=== PATIENT | male | born 1940 | race Caucasian/White ===

== ENCOUNTER → 2017-11-21 11:14 | Outpatient (CLI) | payer MEDICARE, BC, SELFPAY ==
[2017-11-21 12:32] LABS: AST(SGOT) 21 U/L (15-37); Alanine Aminotransfer ALT/SGPT 56 U/L (16-61); Albumin, Serum 3.4 g/dL (3.2-5.0); Alkaline Phosphatase 97 U/L (45-117); Anion Gap 8 (5-15); BUN 20 mg/dL (7-18); BUN/Creat Ratio 18.2 RATIO (10-20); Bilirubin, Direct 0.15 mg/dL (0.00-0.30); Calcium,Total 8.7 mg/dL (8.5-10.1); Chloride 108 mmol/L (98-107); Cholesterol 141 mg/dL (200); EST Glomerular Filtration Rate 69 mL/min (>60); Est Glom Filt Rate - Afr Amer 83 mL/min (>60); Globulin 3.6 g/dL (2.2-4.2); Glucose 103 mg/dL (74-106); High Density Lipoprotein 50 mg/dL; Potassium 4.3 mmol/L (3.5-5.1); Sodium Level 140 mmol/L (136-145); Triglycerides 156 mg/dL; Very Low Density Lipoprotein 31 mg/dL (5-40)
[2017-11-21 18:04] LABS: Microalbumin,Random Urine 13.6 mg/L (NO RANGE EST.); Microalbumin:Creatinine Ratio 8.9 mg/g CRE (<30 mg/g CRE)
== END ==
PROVIDERS: Internal Medicine Cardiovascular Disease; Family Provider Family Medicine; PCP Family Medicine; Visit Provider Family Medicine
DX: E11.9 Type 2 diabetes mellitus without complications (principal); E78.5 Hyperlipidemia, unspecified; I10 Essential (primary) hypertension; I25.118 Atherosclerotic heart disease of native coronary artery with other forms of angina pectoris; Z79.899 Other long term (current) drug therapy; Z98.61 Coronary angioplasty status
CPT/HCPCS: 36415; 80048; 80061; 80076; 82043; 82570

== ENCOUNTER 2018-01-18 15:00 | Outpatient (RCR) | payer MEDICARE, BC, SELFPAY ==
--- NOTE | 2017-11-16 12:34 | HP.PTEVAL_ITS ---
Patient's Visit Information BECKY CASTILLO is a 77 year old M referred to Physical Therapy by Tera GE with a diagnosis of B LE weakness. Date of Evaluation: 11/16/17 Physical Therapist: Chris Doyle PT, - Visit Plan Frequency: 2-3x /Week Duration: 4 Weeks Plan: B LE strengthening, balance and proprio, core stab ex's, nustep, and HEP - Subjective Subjective: Pt reports he has noticed a progressive weakening in his LE's for a chronic period of time. Pt reports he has had injections in his R knee and hip in the past. Pt reports he has a very low tolerance for prolonged standing and walking at this time. Pt reports always has a low grade LBP level, and notes he has to sit down sometimes secondary to LBP. Pt reports his R LE is weaker than his L LE. Pt reports No T or N at this time. Pt reports hyposensitivity in LE's secondary to his peripheral neuropathy that is present. No sleep diff secondary to pain. /10 LBP present this date. - Pain LBP Pain Intensity (Out of 10): 1 - Objective Neuro: B LE sensation is WNL to light touch. B pat tendon reflex= 2/3. MMT: B HS= 4/5 throughout, R knee ext= 4+/5. All others are WWNL. ROM: B LE's are WFL. Pt is moderately limited with L/S ext. Gait: Pt is able to ambulate 640' until needing tto take a rest break - Goals Goal 1:: Increase B LE strength x 1 grade to aid with stair negotiation Goal Time Frame: 4-6 Weeks Goal 2:: Pt will be able to ambulate greater than 1000' to aid with community ambulation Goal Time Frame: 4-6 Weeks Goal 3:: I with HEP Goal Time Frame: 4-6 Weeks - Rehabilitation Potential Physical Therapy Diagnosis: B LE weakness, intol for prolonged ambulation, and LBP secondary to debilitation and deg changes in the L/S Rehabilitation Potential: Good - Anticipated Interventions Patient/Client Instruction: Educate patient on: Condition, Plan of Care For the Purpose of:: To improve self management Therapeutic Exercise to Include: Strength training, Endurance training, Balance training, Gait and locomotor training, Dynamic Lumbar Stabilization For the Purpose of:: To decrease pain, To increase ROM, To improve muscle performance and motor function Thank you for the opportunity to evaluate your patient. For Medicare and Medicare HMO plans, please review the plan of care and approve it. It will need to be FAXED BACK to us at [phone] for Medicare purposes. Please let me know if there are questions or concerns regarding this plan of care. Physician Signature: Date:
--- NOTE | 2018-01-18 16:12 | HP.PTDCSUM ---
HP - PT D/C Summary It has been my pleasure to treat BECKY CASTILLO under orders from Tera Melgar, for the diagnosis of B LE weakness for a total of 19 visit(s). Discharge Date: Please see the following information for a summary of their discharge status. - Subjective Subjective: Minor pain this date - Pain LBP Pain Intensity (Out of 10): 1 R Le Pain Intensity (Out of 10): 1 - Objective Objective/Function: B LE's 5/5 throughout. Pt is able to ambulate greater than 1000 with no AD. Pt is I with HEP. Pt has achieved all Rx goals - Goals Goal 1:: Increase B LE strength x 1 grade to aid with stair negotiation Goal Progress: Goal Met Goal 2:: Pt will be able to ambulate greater than 1000' to aid with community ambulation Goal Progress: Goal Met Goal 3:: I with HEP Goal Progress: Goal Met - Plan Plan: B LE strengthening, balance and proprio, core stab ex's, nustep, and HEP - D/C Information If there are questions or concerns regarding this patient's physical therapy, please feel free to call me at [phone]. Thank you for the referral of this patient. Sincerely, Chris Doyle, PT,
== END 2018-01-18 19:00 | disposition home or self-care (01) ==
LOC: PT 15:00
PROVIDERS: Family Provider Family Medicine; PCP Family Medicine; Visit Provider Family Medicine
DX: R29.898 Other symptoms and signs involving the musculoskeletal system (principal)
CPT/HCPCS: 97110; 97162; 97530

== ENCOUNTER → 2018-06-14 12:18 | Outpatient (CLI) | payer MEDICARE, BC, SELFPAY ==
[2018-06-14 15:58] LABS: AST(SGOT) 22 U/L (15-37); Alanine Aminotransfer ALT/SGPT 40 U/L (16-61); Albumin, Serum 3.5 g/dL (3.2-5.0); Alkaline Phosphatase 108 U/L (45-117); Anion Gap 5 (5-15); BUN 20 mg/dL (7-18); BUN/Creat Ratio 16.4 RATIO (10-20); Bilirubin, Direct 0.19 mg/dL (0.00-0.30); Calcium,Total 8.9 mg/dL (8.5-10.1); Chloride 107 mmol/L (98-107); Cholesterol 133 mg/dL (200); Creatinine, Serum 1.22 mg/dL (0.70-1.30); EST Glomerular Filtration Rate 61 mL/min (>60); Est Glom Filt Rate - Afr Amer 74 mL/min (>60); Globulin 3.9 g/dL (2.2-4.2); Glucose 99 mg/dL (74-106); High Density Lipoprotein 46 mg/dL; Potassium 4.6 mmol/L (3.5-5.1); Protein, Total 7.4 g/dL (6.4-8.2); Sodium Level 139 mmol/L (136-145); Triglycerides 92 mg/dL; Very Low Density Lipoprotein 18 mg/dL (5-40)
== END ==
PROVIDERS: Family Provider Family Medicine; PCP Family Medicine; Visit Provider Family Medicine
DX: E11.9 Type 2 diabetes mellitus without complications (principal)
CPT/HCPCS: 36415; 80048; 80061; 80076

== ENCOUNTER → 2018-12-20 11:29 | Outpatient (CLI) | payer MEDICARE, BC, SELFPAY ==
[2017-12-25 11:44] VITALS: BMI 39.9
[2018-12-20 14:24] LABS: AST(SGOT) 20 U/L (15-37); Alanine Aminotransfer ALT/SGPT 43 U/L (16-61); Albumin, Serum 3.8 g/dL (3.2-5.0); Alkaline Phosphatase 105 U/L (45-117); Anion Gap 9 (5-15); BUN 24 mg/dL (7-18); BUN/Creat Ratio 20.2 RATIO (10-20); Bilirubin, Direct 0.18 mg/dL (0.00-0.30); Chloride 108 mmol/L (98-107); Cholesterol 151 mg/dL (200); Creatinine, Serum 1.19 mg/dL (0.70-1.30); EST Glomerular Filtration Rate 63 mL/min (>60); Est Glom Filt Rate - Afr Amer 76 mL/min (>60); Globulin 3.3 g/dL (2.2-4.2); Glucose 108 mg/dL (74-106); High Density Lipoprotein 46 mg/dL; Potassium 4.6 mmol/L (3.5-5.1); Protein, Total 7.1 g/dL (6.4-8.2); Sodium Level 141 mmol/L (136-145); Triglycerides 110 mg/dL; Very Low Density Lipoprotein 22 mg/dL (5-40)
[2018-12-20 14:37] LABS: Microalbumin,Random Urine 15.4 mg/L (NO RANGE EST.)
== END ==
PROVIDERS: Family Provider Family Medicine; PCP Family Medicine; Referring Provider Family Medicine; Visit Provider Family Medicine
DX: E11.9 Type 2 diabetes mellitus without complications (principal)
CPT/HCPCS: 36415; 80048; 80061; 80076; 82043; 82570

== ENCOUNTER → 2019-01-22 | Outpatient (CLI) | payer MEDICARE, BC, SELFPAY ==
[2019-01-03 10:32] VITALS: BMI 39.4
--- NOTE | 2019-01-22 14:56 | ECHOD_ITS ---
Reason For Study: MURMUR Procedure This was a 2D Doppler, Color Flow transthoracic echocardiogram. The study was technically difficult. Exam performed in department. Left Ventricle Normal LV size. Left ventricular systolic function is normal. The estimated ejection fraction is 60 %. Diastolic function is indeterminate. No regional wall motion abnormalities noted. Right Ventricle Normal RV size. Normal systolic function. Atria Normal left atrium. Normal right atrium. No doppler evidence for ASD. Mitral Valve There is mild to moderate mitral annular calcification. Extension of the mitral annular calcification onto the posterior mitral valve leaflet. Trivial mitral valve insufficiency. Tricuspid Valve Normal tricuspid valve. Trivial tricuspid valve insufficiency. Unable to estimate RV systolic pressure/pulmonary artery pressure due to technically difficult study. Aortic Valve The aortic valve is not well visualized. Mild focal aortic valve thickening. Mild focal aortic valve calcification. Aortic sclerosis, no stenosis. Pulmonic Valve The pulmonic valve is not well visualized. Great Vessels Normal sized aortic root. Pericardium/Pleural No pericardial effusion. MMode/2D Measurements & Calculations LVIDd: 4.0 cm IVSd: 1.4 cm LVOT diam: 2.0 cm LVIDs: 2.5 cm LVPWd: 1.2 cm LVOT area: 3.0 cm2 RVDd: 3.3 cm FS: 36.9 % Ao root diam: 3.4 cm LAV(MOD-sp4): 41.4 ml LA A4 area: 18.1 cm2 LA dimension(2D): 3.9 cm RA A4 area: 22.4 cm2 Time Measurements MV dec time: 0.30 sec Doppler Measurements & Calculations MV E max cedric: 85.1 cm/sec Lat Peak E' Cedric: 8.4 cm/sec Med Peak E' Cedric: 7.0 cm/sec MV A max cedric: 118.9 cm/sec E/E' lat: 10.1 E/E' med: 12.1 MV E/A: 0.72 Ao V2 max: 137.4 cm/sec LV V1 max: 112.4 cm/sec PA V2 max: 134.6 cm/sec Ao max P.6 mmHg LV V1 max P.1 mmHg KANDY(V,D): 2.5 cm2 Interpretation Summary The study was technically difficult. Left ventricular systolic function is normal. The estimated ejection fraction is 60 %. There is mild to moderate mitral annular calcification. Extension of the mitral annular calcification onto the posterior mitral valve leaflet. Trivial mitral valve insufficiency. Trivial tricuspid valve insufficiency. Aortic sclerosis, no stenosis. Unable to estimate RV systolic pressure/pulmonary artery pressure due to technically difficult study. Diastolic function is indeterminate. Ordering Physician: Tera Fitzpatrick Referring Physician: Tera Melgar Performed By: Page Srivastava, RDCS, RVT
== END | disposition home or self-care (01) ==
LOC: CVS 14:56
PROVIDERS: Family Provider Family Medicine; PCP Family Medicine; Referring Provider Internal Medicine Cardiovascular Disease; Visit Provider Internal Medicine Cardiovascular Disease
DX: I35.9 Nonrheumatic aortic valve disorder, unspecified (principal); Z79.899 Other long term (current) drug therapy
CPT/HCPCS: 93306

== ENCOUNTER → 2019-06-28 12:02 | Outpatient (CLI) | payer MEDICARE, BC, SELFPAY ==
[2019-06-27 10:27] VITALS: BMI 37.9
[2019-06-28 14:42] LABS: Anion Gap 7 (5-15); BUN 22 mg/dL (7-18); BUN/Creat Ratio 19.5 RATIO (10-20); Calcium,Total 9.1 mg/dL (8.5-10.1); Chloride 108 mmol/L (98-107); Creatinine, Serum 1.13 mg/dL (0.70-1.30); EST Glomerular Filtration Rate 67 mL/min (>60); Est Glom Filt Rate - Afr Amer 80 mL/min (>60); Glucose 103 mg/dL (74-106); Potassium 4.6 mmol/L (3.5-5.1); Sodium Level 140 mmol/L (136-145)
[2019-06-28 15:47] LABS: AST(SGOT) 22 U/L (15-37); Alanine Aminotransfer ALT/SGPT 50 U/L (16-61); Albumin, Serum 3.8 g/dL (3.2-5.0); Alkaline Phosphatase 122 U/L (45-117); Bilirubin, Direct 0.15 mg/dL (0.00-0.30); Cholesterol 144 mg/dL (200); Globulin 3.2 g/dL (2.2-4.2); High Density Lipoprotein 45 mg/dL; Triglycerides 114 mg/dL; Very Low Density Lipoprotein 23 mg/dL (5-40)
== END ==
PROVIDERS: Nurse Practitioner Family; Family Provider Family Medicine; PCP Family Medicine; Referring Provider Family Medicine; Visit Provider Family Medicine
DX: I25.118 Atherosclerotic heart disease of native coronary artery with other forms of angina pectoris (principal); E78.00 Pure hypercholesterolemia, unspecified; I10 Essential (primary) hypertension; Z95.5 Presence of coronary angioplasty implant and graft
CPT/HCPCS: 36415; 80048; 80061; 80076

== ENCOUNTER → 2020-02-14 10:57 | Outpatient (CLI) | payer MEDICARE, BC, SELFPAY ==
[2020-01-02 14:52] VITALS: BMI 37.9
[2020-02-14 11:44] LABS: Anion Gap 5 (5-15); BUN 17 mg/dL (7-18); BUN/Creat Ratio 15.9 RATIO (10-20); Calcium,Total 8.8 mg/dL (8.5-10.1); Chloride 111 mmol/L (98-107); Creatinine, Serum 1.07 mg/dL (0.70-1.30); EST Glomerular Filtration Rate 71 mL/min (>60); Est Glom Filt Rate - Afr Amer 86 mL/min (>60); Glucose 118 mg/dL (74-106); Potassium 4.5 mmol/L (3.5-5.1); Sodium Level 142 mmol/L (136-145)
[2020-02-14 12:06] LABS: AST(SGOT) 19 U/L (15-37); Alanine Aminotransfer ALT/SGPT 39 U/L (16-61); Albumin, Serum 3.5 g/dL (3.2-5.0); Alkaline Phosphatase 114 U/L (45-117); Bilirubin, Direct 0.18 mg/dL (0.00-0.30); Cholesterol 128 mg/dL (200); Globulin 3.7 g/dL (2.2-4.2); High Density Lipoprotein 44 mg/dL; Protein, Total 7.2 g/dL (6.4-8.2); Triglycerides 90 mg/dL; Very Low Density Lipoprotein 18 mg/dL (5-40)
[2020-02-14 12:10] LABS: Hemoglobin A1c 6.3 % (3.8-5.6)
== END ==
PROVIDERS: Nurse Practitioner Family; PCP Family Medicine; Visit Provider Internal Medicine Cardiovascular Disease
DX: E11.9 Type 2 diabetes mellitus without complications (principal); E78.00 Pure hypercholesterolemia, unspecified
CPT/HCPCS: 36415; 80048; 80061; 80076; 83036

== ENCOUNTER → 2020-07-29 11:27 | Outpatient (CLI) | payer MEDICARE, BC, SELFPAY ==
[2020-01-02 14:52] VITALS: BMI 37.9
[2020-07-29 14:01] LABS: Hemoglobin A1c 6.3 % (3.8-5.6)
[2020-07-29 14:12] LABS: AST(SGOT) 20 U/L (15-37); Alanine Aminotransfer ALT/SGPT 50 U/L (16-61); Albumin, Serum 3.7 g/dL (3.2-5.0); Alkaline Phosphatase 124 U/L (45-117); Anion Gap 5 (5-15); BUN 20 mg/dL (7-18); BUN/Creat Ratio 17.2 RATIO (10-20); Bilirubin, Direct 0.26 mg/dL (0.00-0.30); Calcium,Total 9.4 mg/dL (8.5-10.1); Chloride 107 mmol/L (98-107); Cholesterol 134 mg/dL (200); Creatinine, Serum 1.16 mg/dL (0.70-1.30); EST Glomerular Filtration Rate 64 mL/min (>60); Est Glom Filt Rate - Afr Amer 78 mL/min (>60); Globulin 3.7 g/dL (2.2-4.2); Glucose 105 mg/dL (74-106); High Density Lipoprotein 44 mg/dL; Potassium 4.5 mmol/L (3.5-5.1); Protein, Total 7.4 g/dL (6.4-8.2); Sodium Level 140 mmol/L (136-145); Triglycerides 132 mg/dL; Very Low Density Lipoprotein 26 mg/dL (5-40)
== END ==
PROVIDERS: Internal Medicine Cardiovascular Disease; PCP Family Medicine; Visit Provider Family Medicine
DX: E78.00 Pure hypercholesterolemia, unspecified (principal); E11.9 Type 2 diabetes mellitus without complications
CPT/HCPCS: 36415; 80048; 80061; 80076; 83036

== ENCOUNTER 2020-10-01 11:00 | Outpatient (RCR) | payer MEDICARE, BC, SELFPAY ==
[2020-07-31 13:05] VITALS: BMI 38.5
== END 2020-10-01 23:59 ==
LOC: IMMUN 11:00
PROVIDERS: PCP Family Medicine; Visit Provider Family Medicine
DX: Z23 Encounter for immunization (principal)
CPT/HCPCS: 0011A; 0012A; 91301

== ENCOUNTER → 2021-01-08 10:33 | Outpatient (CLI) | payer MEDICARE, BC, SELFPAY ==
[2020-07-31 13:05] VITALS: BMI 38.5
[2021-01-08 12:50] LABS: Hemoglobin A1c 6.5 % (3.8-5.6)
[2021-01-08 12:51] LABS: ALB/GLOB Ratio 0.9 RATIO (0.9-2.4); AST(SGOT) 18 U/L (15-37); Alanine Aminotransfer ALT/SGPT 39 U/L (16-61); Albumin, Serum 3.6 g/dL (3.2-5.0); Alkaline Phosphatase 120 U/L (45-117); Anion Gap 7 (5-15); BUN 26 mg/dL (7-18); BUN/Creat Ratio 20.6 RATIO (10-20); Chloride 107 mmol/L (98-107); Cholesterol 142 mg/dL (200); Creatinine, Serum 1.26 mg/dL (0.70-1.30); EST Glomerular Filtration Rate 58 mL/min (>60); Est Glom Filt Rate - Afr Amer 71 mL/min (>60); Globulin 3.9 g/dL (2.2-4.2); Glucose 119 mg/dL (74-106); High Density Lipoprotein 49 mg/dL; Potassium 4.6 mmol/L (3.5-5.1); Protein, Total 7.5 g/dL (6.4-8.2); Sodium Level 138 mmol/L (136-145); Triglycerides 122 mg/dL; Very Low Density Lipoprotein 24 mg/dL (5-40)
[2021-01-08 13:15] LABS: Microalbumin,Random Urine 19.1 mg/L (NO RANGE EST.); Microalbumin:Creatinine Ratio 18.4 mg/g CRE (<30 mg/g CRE)
== END ==
PROVIDERS: PCP Family Medicine; Referring Provider Family Medicine; Visit Provider Family Medicine
DX: E11.9 Type 2 diabetes mellitus without complications (principal); I10 Essential (primary) hypertension
CPT/HCPCS: 36415; 80053; 80061; 82043; 82570; 83036

== ENCOUNTER → 2021-01-11 15:53 | Outpatient (CLI) | payer MEDICARE, BC, SELFPAY ==
[2020-07-31 13:05] VITALS: BMI 38.5
--- NOTE | 2021-01-11 15:57 | RAD_ITS ---
STUDY: X-RAY - RIGHT KNEE REASON FOR EXAM: Male, 81 years old. PAIN TECHNIQUE: 3 view(s) of the knee. COMPARISON: 12/30/2015. FINDINGS: No acute fracture, dislocation or osseous destruction. Severe medial compartment osteoarthritis. Lateral compartment widening. Mild patellofemoral arthrosis. Mild anterior soft tissue swelling. Trace joint effusion. RAD/Knee 3 Views IMPRESSION: Right knee intact Severe medial compartment osteoarthritis Mild anterior swelling with trace joint effusion Electronically Signed: Nikolas Ochoa DO at 10:12 EDT Tel , Service support ,
--- NOTE | 2021-01-11 15:58 | RAD_ITS ---
STUDY: X-RAY - LUMBAR SPINE REASON FOR EXAM: Male, 81 years old. PAIN TECHNIQUE: 5 view(s) of the lumbar spine were obtained. COMPARISON: None FINDINGS: No acute fracture, dislocation or osseous destruction. Levoscoliosis. Lumbar straightening. Moderate/severe lower lumbar spine osteoarthritis with endplate spondylosis, disc height loss, osteophytes, neural foraminal narrowing and facet joint arthrosis. No spondylolisthesis. No significant soft tissue swelling. Vascular calcifications. RAD/L/S Spine Min 4 Views IMPRESSION: Lumbar spine intact with moderate/severe osteoarthritis Lumbar straightening with levoscoliosis Electronically Signed: Nikolas Ochoa DO at 10:25 EDT Tel , Service support ,
== END ==
PROVIDERS: PCP Family Medicine; Referring Provider Family Medicine; Visit Provider Family Medicine
DX: M54.9 Dorsalgia, unspecified (principal); M25.561 Pain in right knee
CPT/HCPCS: 72110; 73562

== ENCOUNTER → 2021-01-25 12:54 | Outpatient (CLI) | payer MEDICARE, BC, SELFPAY ==
[2021-01-13 13:05] VITALS: BMI 38.5
--- NOTE | 2021-01-25 12:55 | ECHOCS_ITS ---
Reason For Study: Dyspnea/SOB, Aortic Murmur Procedure This was a 2D Doppler, Color Flow transthoracic echocardiogram. The study was technically difficult. Contrast injection was performed. Exam performed in department. Left Ventricle Based upon the 2D echocardiographic and contrast enhanced images obtained there appears to be grossly normal left ventricular size, wall motion, and systolic function. The estimated ejection fraction is 65 %. Diastolic function is indeterminate. Right Ventricle Normal RV size. Normal systolic function. Atria Normal left atrium. Normal right atrium. No doppler evidence for ASD. Mitral Valve There is mild to moderate mitral annular calcification. Extension of the mitral annular calcification on the base of the posterior mitral valve leaflet. Trivial mitral valve insufficiency. Tricuspid Valve Normal tricuspid valve. Trivial tricuspid valve insufficiency. Unable to estimate RV systolic pressure/pulmonary artery pressure due to technically difficult study. Aortic Valve Trisinus/trileaflet aortic valve. Mild focal aortic valve thickening. Mild focal aortic valve calcification. Aortic sclerosis, no stenosis. Pulmonic Valve The pulmonic valve is not well visualized. Great Vessels The aortic root is not well visualized. Pericardium/Pleural No pericardial effusion. Medication 22 gauge I.V. with prn adaptor inserted into right arm. Diluted definity 4ml given slow IV push to enhance endocardial definition. MMode/2D Measurements & Calculations LVIDd: 3.8 cm IVSd: 1.2 cm LVOT diam: 2.0 cm LVIDs: 2.2 cm LVPWd: 0.76 cm FS: 42.2 % LVOT area: 3.2 cm2 LA dimension: 3.6 cm LAV(MOD-sp4): 32.4 ml LA A4 area: 15.3 cm2 RA A4 area: 14.5 cm2 Time Measurements MV dec time: 0.43 sec Doppler Measurements & Calculations MV E max cedric: 66.5 cm/sec Lat Peak E' Cedric: 6.5 cm/sec Med Peak E' Cedric: 7.4 cm/sec MV A max cedric: 110.4 cm/sec E/E' lat: 10.2 E/E' med: 9.0 MV E/A: 0.60 MV V2 max: 118.5 cm/sec MV P1/2t max cedric: 76.1 cm/sec Ao V2 max: 152.7 cm/sec MV max P.6 mmHg MV P1/2t: 154.7 msec Ao max P.3 mmHg MV V2 mean: 60.7 cm/sec MV dec slope: 144.1 cm/sec2 Ao V2 mean: 103.7 cm/sec MV mean P.7 mmHg Ao mean P.9 mmHg MV V2 VTI: 42.4 cm MVA(P1/2t): 1.4 cm2 Ao V2 VTI: 32.0 cm MVA(VTI): 2.1 cm2 KANDY(I,D): 2.8 cm2 KANDY(V,D): 2.9 cm2 LV V1 max: 136.3 cm/sec SV(LVOT): 90.6 ml PA V2 max: 105.9 cm/sec LV V1 max P.4 mmHg LV V1 mean P.9 mmHg LV V1 mean: 91.6 cm/sec LV V1 VTI: 28.0 ECHO/Echo Complete W/ Contrast Interpretation Summary The study was technically difficult. Contrast injection was performed. Based upon the 2D echocardiographic and contrast enhanced images obtained there appears to be grossly normal left ventricular size, wall motion, and systolic function. The estimated ejection fraction is 65 %. There is mild to moderate mitral annular calcification. Extension of the mitral annular calcification on the base of the posterior mitr al valve leaflet. Trivial mitral valve insufficiency. Trivial tricuspid valve insufficiency. Aortic sclerosis, no stenosis. Unable to estimate RV systolic pressure/pulmonary artery pressure due to techni kelly difficult study. Diastolic function is indeterminate. Ordering Physician: Daryl Garcia Referring Physician: Tera Melgar Performed By: Yan Aguirre RCS
== END ==
PROVIDERS: PCP Family Medicine; Referring Provider Nurse Practitioner Family; Visit Provider Nurse Practitioner Family
DX: I25.118 Atherosclerotic heart disease of native coronary artery with other forms of angina pectoris (principal)
CPT/HCPCS: 93306; Q9957; A4216; C8929

== ENCOUNTER → 2021-02-02 06:38 | Outpatient (CLI) | payer MEDICARE, BC, SELFPAY ==
[2021-01-13 13:05] VITALS: BMI 38.5
--- NOTE | 2021-02-02 12:51 | STRESSREP ---
Stress Test Report Date: 02-02-2021 Procedure: Pharmacologic stress nuclear imaging study Indications: Shortness of breath/dyspnea on exertion; CAD; PCI; abnormal ECG/right bundle branch block Consent: Per the patient Procedure: The patient underwent pharmacologic (Regadenoson 0.4mg ) evaluation with a peak heart rate of 103 beats per minute (74%predicted maximal heart rate) and a peak blood pressure of 142/78 mmHg. The baseline ECG demonstrated normal sinus rhythm; right bundle branch block. The peak pharmacologic ECG demonstrated no obvious ECG changes. There were no cardiac dysrhythmias pretest, during pharmacologic infusion, or recovery. There was no complaint of chest discomfort during pharmacologic infusion or recovery. The examination was discontinued secondary to completion of protocol. Impression: 1. Pharmacologic (Regadenoson) evaluation 2. Peak pharmacologic ECG with continued right bundle branch block with no obvious ECG changes. 3. There were no cardiac dysrhythmias pretest, during pharmacologic infusion, or recovery. 4. Nuclear images pending Myocardial perfusion imaging study: Technique: The patient was injected with 14.9 millicuries of technetium 99m Cardiolite and subsequently rest SPECT Cardiolite nuclear imaging was obtained in the horizontal long, vertical long, and short axis views. The patient underwent pharmacologic (Regadenoson) evaluation with a peak heart rate of 103 beats per minute (74% percent predicted maximal heart rate) and a peak blood pressure of 142/78 mmHg. The patient was injected with 44.8 millicuries of technetium 99m Cardiolite and subsequently stress SPECT Cardiolite nuclear imaging was obtained in the horizontal long, vertical long, and short axis views. A gated Cardiolite study at peak stress was obtained. Interpretation: Rest and stress SPECT Cardiolite nuclear imaging status post realignment, normalization, and attenuation correction demonstrate the appearance of body motion during image acquisition and otherwise relative uniform tracer uptake and myocardial perfusion appearing within normal limits. There is end systolic thickening and brightening. The gated Cardiolite study demonstrates myocardial thickening and inward wall motion. The reported LVEF is 88%. Impression: 1. Rest and stress SPECT Cardiolite nuclear imaging demonstrate relative uniform tracer uptake and myocardial perfusion appearing within normal limits. 2. The gated Cardiolite study reports an LVEF of 88%. This note was generated with [employer] software. It may contain incorrect words, spelling, and punctuation that were not noted in checking the note before signing.
== END ==
PROVIDERS: PCP Family Medicine; Referring Provider Nurse Practitioner Family; Visit Provider Nurse Practitioner Family
DX: I25.118 Atherosclerotic heart disease of native coronary artery with other forms of angina pectoris (principal); Z95.5 Presence of coronary angioplasty implant and graft; R06.00 Dyspnea, unspecified; R06.02 Shortness of breath
CPT/HCPCS: 78452; 93017; A9500; A4216; J2785

== ENCOUNTER → 2021-07-02 11:11 | Outpatient (CLI) | payer MEDICARE, BC, SELFPAY ==
[2021-07-02 12:49] LABS: Hemoglobin A1c 6.1 % (3.8-5.6)
[2021-07-02 13:20] LABS: PSA,Total- Diagnostic 2.47 ng/mL (0.0-4.0)
== END ==
PROVIDERS: PCP Family Medicine; Referring Provider Family Medicine; Visit Provider Family Medicine
DX: E11.9 Type 2 diabetes mellitus without complications (principal); N40.0 Benign prostatic hyperplasia without lower urinary tract symptoms
CPT/HCPCS: 36415; 83036; 84153

== ENCOUNTER → 2021-07-07 10:38 | Outpatient (CLI) | payer MEDICARE, BC, SELFPAY ==
[2021-07-07 12:52] LABS: AST(SGOT) 21 U/L (15-37); Alanine Aminotransfer ALT/SGPT 46 U/L (16-61); Albumin, Serum 3.3 g/dL (3.2-5.0); Alkaline Phosphatase 126 U/L (45-117); Bilirubin, Direct 0.22 mg/dL (0.00-0.30); Cholesterol 135 mg/dL (200); Globulin 3.6 g/dL (2.2-4.2); High Density Lipoprotein 50 mg/dL; Protein, Total 6.9 g/dL (6.4-8.2); Triglycerides 106 mg/dL; Very Low Density Lipoprotein 21 mg/dL (5-40)
== END ==
PROVIDERS: PCP Family Medicine; Referring Provider Internal Medicine Cardiovascular Disease; Visit Provider Internal Medicine Cardiovascular Disease
DX: E78.00 Pure hypercholesterolemia, unspecified (principal)
CPT/HCPCS: 36415; 80061; 80076

== ENCOUNTER 2021-11-19 12:45 | Outpatient (CLI) | payer MEDICARE, BC, SELFPAY ==
[2021-11-19 14:00] LABS: Hemoglobin A1c 6.3 % (3.8-5.6)
[2021-11-19 14:19] LABS: AST(SGOT) 25 U/L (15-37); Alanine Aminotransfer ALT/SGPT 56 U/L (16-61); Albumin, Serum 3.6 g/dL (3.2-5.0); Alkaline Phosphatase 115 U/L (45-117); Bilirubin, Direct 0.17 mg/dL (0.00-0.30); Cholesterol 156 mg/dL (200); Globulin 3.8 g/dL (2.2-4.2); High Density Lipoprotein 53 mg/dL; Protein, Total 7.4 g/dL (6.4-8.2); Triglycerides 131 mg/dL; Very Low Density Lipoprotein 26 mg/dL (5-40)
[2021-11-19 14:25] LABS: Anion Gap 2 (5-15); BUN 20 mg/dL (7-18); BUN/Creat Ratio 14.8 RATIO (10-20); Calcium,Total 9.4 mg/dL (8.5-10.1); Chloride 110 mmol/L (98-107); Creatinine, Serum 1.35 mg/dL (0.70-1.30); EST Glomerular Filtration Rate 54 mL/min (>60); Est Glom Filt Rate - Afr Amer 65 mL/min (>60); Glucose 120 mg/dL (74-106); PSA,Total- Diagnostic 2.34 ng/mL (0.0-4.0); Potassium 4.8 mmol/L (3.5-5.1); Sodium Level 138 mmol/L (136-145); Thyroid Stim Hormone (TSH) 2.13 uIU/mL (0.358-3.74)
== END 2021-11-19 23:59 | disposition home or self-care (01) ==
LOC: LAB 12:47
PROVIDERS: Internal Medicine Cardiovascular Disease; PCP Family Medicine; Referring Provider Family Medicine; Visit Provider Family Medicine
DX: I10 Essential (primary) hypertension (principal); E11.9 Type 2 diabetes mellitus without complications; E78.00 Pure hypercholesterolemia, unspecified; N40.0 Benign prostatic hyperplasia without lower urinary tract symptoms
CPT/HCPCS: 36415; 80048; 80061; 80076; 83036; 84153; 84443

== ENCOUNTER 2021-12-09 11:59 | Outpatient (CLI) | payer MEDICARE, BC, SELFPAY ==
--- NOTE | 2021-12-09 12:09 | EKG12_ITS ---
Test Reason : PREOP Blood Pressure : / mmHG Vent. Rate : 051 BPM Atrial Rate : 051 BPM P-R Int : 252 ms QRS Dur : 154 ms QT Int : 428 ms P-R-T Axes : 061 088 052 degrees QTc Int : 394 ms Sinus bradycardia with 1st degree A-V block Right bundle branch block Abnormal ECG Confirmed by MAIDA BOONE, SADI ([id number]), technical editor ODALIS ZEE ([id number]) on 12/10/2021 1:19:20 PM Referred By: FARHEEN JENSEN Confirmed By:REBECCA BEY MD
--- NOTE | 2021-12-09 12:40 | RAD_ITS ---
STUDY: XR Chest 2 Views 12/09/2021 12:41 PM REASON FOR EXAM: Male, 81 years old. PREOP COMPARISON: None TECHNIQUE: XR Chest 2 Views FINDINGS: There is no demonstrated pleural abnormality. Normal heart size. Normal mediastinum. Normal kiara. Prominent appearing increased interstitial lung markings. Normal visualized pulmonary arteries. There is atherosclerotic calcification of the aortic arch with tortuosity. There are diffuse degenerative changes of the visualized thoracic spine. There is degenerative osteoarthritis of the bilateral shoulders. There is no demonstrated abnormality of the visualized soft tissue structures of the upper abdomen. RAD/Chest PA and Lateral IMPRESSION: There are no acute findings. Electronically Signed: Chris Abdullahi MD at 16:55 EDT ,
[2021-12-09 13:39] LABS: Hematocrit 46.5 % (40-54); Hemoglobin 15.3 g/dL (13.0-16.5); Mean Corp Hgb Conc 32.9 g/dL (32-36); Mean Corpuscular Hgb 31.4 pg (27.0-32.0); Mean Corpuscular Volume 95.3 fL (80-94); Mean Platelet Vol. 11.9 fl (6.2-12.0); Platelet Count 190 K/mm3 (150-450); RBC Distribution Width CV 13.6 % (11.6-14.6); Red Blood Count 4.88 M/mm3 (4.6-6.2); White Blood Count 8.5 K/mm3 (4.4-11.0)
[2021-12-09 13:49] LABS: Partial Thromboplast Time 30.9 Seconds (24.1-36.2)
[2021-12-09 14:10] LABS: Anion Gap 6 (5-15); BUN 25 mg/dL (7-18); BUN/Creat Ratio 18.7 RATIO (10-20); Calcium,Total 8.8 mg/dL (8.5-10.1); Chloride 106 mmol/L (98-107); Creatinine, Serum 1.34 mg/dL (0.70-1.30); EST Glomerular Filtration Rate 54 mL/min (>60); Est Glom Filt Rate - Afr Amer 66 mL/min (>60); Glucose 198 mg/dL (74-106); Potassium 4.6 mmol/L (3.5-5.1); Sodium Level 137 mmol/L (136-145)
== END 2021-12-09 23:59 | disposition home or self-care (01) ==
PROVIDERS: PCP Family Medicine; Visit Provider Orthopaedic Surgery
DX: Z01.818 Encounter for other preprocedural examination (principal); Z01.810 Encounter for preprocedural cardiovascular examination; I25.10 Atherosclerotic heart disease of native coronary artery without angina pectoris
CPT/HCPCS: 36415; 71046; 80048; 85027; 85610; 85730; 93005

== ENCOUNTER 2022-01-13 12:36 | Observation (INO) | payer MEDICARE, BC, SELFPAY ==
[2022-01-13] VITALS (12 sets, daily range): BP systolic 84–138; BP diastolic 46–93; PULSE 55–87; RESP 16–18; TEMP 36.1–36.9; O2SAT 90–96; BMI 40.1; BMI 41.9
[2022-01-13] MEDS: Lactated Ringers 1,000 ML 15 ML IV (11:54)
--- NOTE | 2022-01-13 12:30 | RAD_ITS ---
STUDY: INTRAOPERATIVE FLUOROSCOPY TECHNIQUE: The examination was performed with referring physician in attendance. Under fluoroscopic observation, fluoroscopic images were obtained. Radiologist was not present for the study. Radiologist did not perform the procedure. This dictation is for documentation of the radiation dosage only. There is no interpretation of the images. TOTAL NUMBER OF IMAGES: 1 COMPARISON: None RADIATION DOSE: 29 mGy FLUOROSCOPY TIME: 62 seconds REASON FOR EXAM: IMPLANTATION SPINAL CORD STIMULATOR Male, 82 years old. FINDINGS: There is a left side sided subcutaneous implanted electronic device with leads extending into the spinal canal. This is likely an SCS (spinal cord stimulator). RAD/Lumbar Spine 2 or 3 Views IMPRESSION: Fluoroscopic assistance images were obtained. Dictation for documentation purposes only. Electronically Signed: Chris Abdullahi MD at 16:49 EDT ,
--- NOTE | 2022-01-13 12:38 | DS.PCM_ITS ---
Providers Date of Admission: 01/13/22 Primary Care Physician: Dr. Tera Melgar MD Reason For Visit: THORACIC 9-10 LAMINECTOMY,IMPLANTATION SPINAL CORD Diagnosis Discharge Diagnosis (1) Lumbar spondylosis: Status: Acute Code(s): M47.816 - Spondylosis without myelopathy or radiculopathy, lumbar region Medications at Discharge Home Medications metformin 500 mg PO DAILY 09/27/14 multivitamin with folic acid 1 tab PO DAILY 01/19/16 psyllium husk [Metamucil] 4 tab PO BID 01/19/16 allopurinol 100 mg tablet 100 mg PO DAILY 01/02/20 lisinopril 10 mg tablet 10 mg PO QDAY #90 tab 01/13/21 nitroglycerin 0.4 mg sublingual tablet 0.4 mg SUBLINGUAL Q5M PRN #90 tab 02/11/21 atorvastatin 80 mg tablet 80 mg PO QHS #90 tab 11/08/21 metoprolol tartrate 25 mg tablet 25 mg PO BID #180 tab 11/08/21 hydrocodone-acetaminophen 1 tab PO Q6H 7 Days #28 tab 01/13/22 Hospital Course Operations - (T9-10 partial laminectomies, implantation of permanent spinal cord stimulator lead and generator) Summary of Care Provided Minutes Spent on Discharge: 15 Hospital Course: The patient is an 82-year-old male who underwent implantation of a permanent spinal cord stimulator lead and generator on 01/13/2022 he was subsequently admitted. The hospitalist was consulted for medical management. The patient progressed well. His pain was well controlled and he was mobilizing well. No significant medical issues were reported. He was subsequently discharged home on 01/14/2022 to follow-up with Dr. Pardo in 3 weeks Physical Exam Narrative The patient was seen and examined postoperative day 1. He is sitting up in a chair resting comfortably. He has been up and walking around the room without difficulty. He is complaining of some postop soreness in the back. No other complaints including numbness tingling weakness. Const alert, oriented x3 and no apparent distress General Appearance: cooperative, comfortable and well kempt HEENT normocephalic and head/scalp atraumatic Eyes EOMs intact bilaterally and conjunctivae normal Neck full ROM General: normal visual inspection Chest inspection of chest normal and palpation of chest normal Resp normal respiratory effort and normal air movement Cardio regular rate and peripheral pulses 2+ throughout GI soft to palpation, non-tender and non-distended Back/Spine Back/Spine Narrative: Dressings clean dry and intact. Incisions well approximat ed with interrupted sutures in place. No tenderness erythema drainage or fluctuance Cervical Spine: cervical ROM normal Thoracic Spine / Upper Back: normal to inspection Lumbar Spine / Lower Back: normal to inspection Extremity normal to inspection, full ROM, normal capillary refill, no clubbing, cyanosis or edema and no calf tenderness Skin no rashes or lesions noted General Skin Exam: no breakdown Neuro oriented x3, CN's II-XII intact bilaterally, moves all extremities, no focal motor deficits, no sensory deficits noted and deep tendon reflexes 2+ bilaterally Motor Exam: strength 5/5 throughout and muscle tone normal throughout Weight / BMI Weight Weight: 279 lb 15.793 oz Body Mass Index (BMI) 40.1 D/C Instructions Discharge Diet: No restrictions Lifting Restricted to (Lbs): 5 Additional Activity Instructions: No repetitive bending twisting or lifting greater than 5 pounds. No reaching arms above head Call your doctor if your incision/area has: Continuous Slow Oozing, Sudden Increased Bleeding, Increased Pain/ Swelling, Increased Redness, Foul Smelling Discharge and Swelling at the incision site Call your doctor if you observe: Fever of 101 or Higher, Coldness, Increased Pain, Numbness or Tingling, Change in Color, Inability to urinate, Inability to have a bowel movement, Using more than 1 pad per hour, Shortness of breath, Dizziness, Fainting spells, Swelling in the ankles, Chest pain, Prolonged hiccupping, Increased palpitations (irregular heartbeat), Calf discomfort and Uncontrolled pain Change Dressing in: Daily Cleanse incision/area with: Do not get Incision Wet and Keep Dressing Clean & Dry Additional Dressing/Incision Instructions: Daily dressing changes with iodine to incision, gauze and tape. [place] dressings to shower Please Follow Up With: Dru Pardo DO When: 3 weeks Meaningful Use Info Meaningful Use Diagnoses (Choose all that apply): None applicable Discharge Plan Admission Admit Date/Time: 01/13/22 12:16 Attending Provider: Lobito Milligan Primary Care Provider: Tera Melgar Consulting Providers: Alexandra Ventura ; Dru Pardo Instructions Additional Instructions / Restrictions: 1. During your procedure, you received sedation through your IV. Please follow these instructions for the next 24 hours: Do not drive a motor vehicle, do not drink any alcoholic beverages, and do not sign any legal documents or make personal or business decisions. A responsible adult should stay with you at [facility] 6 hours after the procedure. 2. Keep your surgical site/incision clean and the dressing dry and intact. . You may use an ice pack at the surgical site to reduce any swelling or discomfort. 3. Monitor the incision site for any signs or symptoms of infection. Watch for redness, excessive swelling or drainage, or continued pain at the incision site after 3 days. Contact your physician immediately for a fever, chills or a temperature of 101.5? F or greater. 4. Take your medication exactly as prescribed by your physician. Do not attempt to wean yourself off any of your medications even though your pain is improving. This process needs to be carefully monitored by your doctor. Take any antibiotics prescribed exactly as directed and until they are gone. 5. Avoid stretching, bending, pulling, twisting or any sudden movements. Do not bend or twist at the waist. Do not raise your arms above your head; . Any movements higher than that could cause your electrode wires to move from their current position. 6. No lifting greater than 5 pounds. 7. Do not operate a motor vehicle, equipment or a power tool while your stimulator is on. If you need to use any equipment, you must turn your stimula tor off first. As a passenger in a motor vehicle, you may use your stimulator. 8. Do not have any manipulation done by a chiropractor or any other physician without first consulting with the physician who placed your spinal cord stimulator. 9. Without movement, you may note changes in the intensity of the stimulator. For example, you may notice a different stimulation when you are standing than when you are sitting or lying down. This is normal the first few weeks following the implant and will stabilize over time. 10. Please contact our office if you are even scheduled for a CT scan or an MRI. 11. Please call us if you have any questions, problems or concerns. Discharge Orders/Prescriptions Prescriptions: New hydrocodone-acetaminophen 5-325 mg tablet 1 tab PO Q6H 7 Days Qty: 28 RF: 0 Continued allopurinol 100 mg tablet 100 mg PO DAILY RF: 0 lisinopril 10 mg tablet 10 mg PO QDAY Qty: 90 RF: 3 metformin 500 MG tablet 500 mg PO DAILY RF: 0 multivitamin with folic acid 1 TABLET tablet 1 tab PO DAILY RF: 0 psyllium husk [Metamucil] 0.52 GM capsule 4 tab PO BID RF: 0 nitroglycerin 0.4 mg tablet, sublingual 0.4 mg SUBLINGUAL Q5M PRN (Reason: Chest Pain) Qty: 90 RF: 6 metoprolol tartrate 25 mg tablet 25 mg PO BID Qty: 180 RF: 3 atorvastatin 80 mg tablet 80 mg PO QHS Qty: 90 RF: 3 Discontinued meloxicam 7.5 mg tablet 7.5 mg PO DAILY RF: 0 Referrals / Follow Up: Dru Pardo DO [STAFF PHYSICIAN] - Tera Melgar MD [Primary Care Provider] -
--- NOTE | 2022-01-13 12:38 | PCM.OPRPT ---
Problems Associated Problem List Diagnoses (1) Lumbar spondylosis: Report of Operation Date of Procedure: 01/13/22 Pre-Operative Diagnosis: 1. Lumbar stenosis, spondylosis Post-Operative Diagnosis: 1. Lumbar stenosis, spondylosis Surgery/Procedure Performed:: 1. T9-10 partial bilateral laminectomies 2. Dorsal column stimulator paddle lead placement 3. Subcutaneous placement of dorsal column stimulator generator 4. 1 hour of complex programming postoperatively Description of Surgical Findings:: The patient is an 82-year-old male with intractable back and leg pain. Image studies confirm the above diagnosis. He has failed conservative treatment to include medication, physical therapy and injections. The patient has opted for operative intervention understanding the risk to include but not limited to bleeding, infection, damage to nerves arteries and veins, paralysis, possibility of spinal fluid leak, continued pain, need for further surgery, deep vein thrombosis, pulmonary embolism, heart attack, risk of stroke or . The patient was identified in the preoperative holding area. There he received preoperative IV antibiotics, Ancef, and was then transferred to the operative suite. Once in the operative suite after general endotracheal anesthesia was established, the patient was transferred to the [place] operating table in the prone position. All bony prominences were padded accordingly. The thoracolumbar spine was prepped and draped in a standard fashion. An incision was made over the thoracolumbar spine and taken down to the level of the fascia. The fascia was divided over the T9-10 interlaminar space and taken down with subperiosteal dissection to the level of the bilateral facet joints. Partial bilateral laminectomies were performed at the T9-10 interspace. At this point the paddle lead was placed spanning from the level of T8 inferiorly. The lead was then anchored to the fascia using standard anchors with silk suture. A transverse incision for the battery/generator was made over the right iliolumbar region. Wires from the stimulator were passed subcutaneously with a passing device to the battery pocket and then connected to a new generator battery. Both incisions were then irrigated and closed with #1 Vicryl for the fascia, 2-0 Vicryl for subcutaneous and 2-0 nylon for skin. A sterile dressing was applied with 4 x 4's ABD and tape. Sponge instrument needle counts were correct at the end of the case. Neurophysiologic monitoring was maintained at baseline throughout the duration of the case. The patient was extubated and taken to the PACU without incident. Then 1 hour was spent with complex programming when the patient recovered. Surgeon: Dru Pardo Type of Anesthesia: General Grafts/Implants Used: [employer] Complications None Admit VTE Documentation VTE Present on Admission: No
--- NOTE | 2022-01-13 12:38 | PCM.PN.ORT ---
Subjective Subjective The patient was seen and examined postoperatively. He is resting comfortably. His pain is controlled. He denies any acute numbness tingling or weakness Objective Data Objective Data Vital Signs: Vital Signs Temp Pulse Resp BP Pulse Ox 98.4 F 55 L 16 120/71 96 01/13/22 11:45 01/13/22 11:45 01/13/22 11:45 01/13/22 11:45 01/13/22 11:45 Oxygen Delivery Method Room Air Weight: 279 lb 15.793 oz Body Mass Index (BMI) 40.1 Physical Exam Const alert, oriented x3 and no apparent distress General Appearance: cooperative, comfortable and well kempt HEENT normocephalic and head/scalp atraumatic Eyes EOMs intact bilaterally and conjunctivae normal Neck full ROM General: normal visual inspection Chest inspection of chest normal and palpation of chest normal Resp normal respiratory effort and normal air movement Effort and Inspection: able to speak in complete sentences Cardio regular rate, regular rhythm and peripheral pulses 2+ throughout GI soft to palpation, non-tender and non-distended Back/Spine Back/Spine Narrative: Dressings clean dry and intact Cervical Spine: cervical ROM normal Thoracic Spine / Upper Back: normal to inspection Lumbar Spine / Lower Back: normal to inspection Extremity normal to inspection, full ROM, normal capillary refill, no clubbing, cyanosis or edema and no calf tenderness Skin no rashes or lesions noted General Skin Exam: no breakdown Neuro oriented x3, CN's II-XII intact bilaterally, moves all extremities, no focal motor deficits, no sensory deficits noted and deep tendon reflexes 2+ bilaterally Motor Exam: strength 5/5 throughout and muscle tone normal throughout Assessment & Plan Assessment/Plan (1) Lumbar spondylosis: PLAN: Okay to admit to floor See orders Pain control and mobilization as tolerated Discharge planning, likely home tomorrow
[2022-01-13 13:06] LABS: Bedside Glucose 149 mg/dL (74-106)
[2022-01-13] MEDS: Cefazolin 2 GM in 0.9% Normal Saline 100 ML IV (13:46)
[2022-01-13] MEDS: THROMBIN (RECOMBINANT) 20,000 UNIT VIAL 20000 UNIT TOPICAL (14:30)
[2022-01-13] MEDS: Lactated Ringers 1,000 ML 100 ML IV ×2 (17:07→21:35)
[2022-01-13 17:30] LABS: Bedside Glucose 164 mg/dL (74-106)
[2022-01-13] MEDS: Morphine 2 MG/ML Syringe IV (18:24)
--- NOTE | 2022-01-13 19:14 | PN.HOSP_ITS ---
Subjective Subjective Patient reports following the OR still uncomfortable and feels as though he cannot move well but denies any specific focal severe pain or any paresthesias. He does note some suprapubic discomfort and has a Pacheco catheter in place that is noted to be draining appropriately. Patient denies fevers, chills, nausea, e mesis, chest pain or dyspnea. Objective Data Objective Data Vital Signs: Vital Signs Temp Pulse Resp BP Pulse Ox 97.9 F 74 16 110/57 L 94 01/13/22 17:59 01/13/22 17:59 01/13/22 17:59 01/13/22 17:59 01/13/22 17:59 Oxygen Flow Rate (L/min) 2 Oxygen Delivery Method Nasal Cannula Weight: 292 lb 5.327 oz Body Mass Index (BMI) 41.9 Intake & Output: Intake and Output for Last 24 Hours 01/11/22 01/12/22 01/13/22 23:59 23:59 23:59 Intake Total 1110 / 1110 Output Total 185 / 185 Balance 925 / 925 Lab / Micro Data Labs: Laboratory Results - last 24 hr 01/13/22 11:53: POC Glucose 149 H 01/13/22 17:25: POC Glucose 164 H Radiography Diagnostic Testing: Radiology Impression Lumbar Spine X-Ray 01/13/22 12:30 IMPRESSION: Fluoroscopic assistance images were obtained. Dictation for documentation purposes only. Electronically Signed: Chris Abdullahi MD at 16:49 EDT Reading Location ID and State: [facility] / [place] , Service support , Physical Exam Narrative Physical Examination: General: Awake, alert, oriented x 3 and cooperative, seated upright in the medical surgical bed, fatigued and mildly uncomfortable appearing. Skin: Normal color, normal turgor, no icterus, no cyanosis except recent lumbar surgery with dressing in place with no drainage. HEENT: AT/NC, EOMI, PERRLA, mildly dry MM, no carotid bruits or JVD noted. Lungs: Mildly diminished, greater bases, appropriate effort, no rales, ronchi or wheezing. Heart: Currently regular rate and rhythm; no gallop, rub audible. Abdomen: Soft, morbidly obese, mild suprapubic discomfort otherwise abdomen NTTP, ND, mildly hyperactive BS, no HSM. Extremities: No cyanosis, clubbing, or edema. Neurological: Patient awake, alert, oriented as noted, cognitive function intact; pupils equally reactive to light and accommodation, cranial nerves II- XII grossly normal, moving all 4 extremities however limited given recent lumbar surgery, no focal deficits, strength moderately to severely global decreased Psychiatric: Affect appears fatigued, uncomfortable, no acute evidence of depressive or anxiety feelings. Assessment & Plan Assessment/Plan (1) Lumbar spondylosis: PLAN: The patient is an 82 y/o M w/ PMHx: CAD s/p PCI, HTN, HLD, Morbid obesity, Diabetes mellitus type II, Chronic lumbar stenosis with spondylosis with intractable ongoing back and leg discomfort who presents to the [facility] 01/13[facility]22 for planned T9-10 partial bilateral laminectomy, dorsal column stimulator paddle lead placement, subcutaneous placement dorsal column stimulator generator, complex programming postoperatively per Dr. Pardo. #1. Severe lumbar stenosis with spondylosis: Failed conservative therapies and treatments, admitted per Dr. Pardo for planned T9-10 partial bilateral laminectomy, dorsal column stimulator paddle lead placement, subcutaneous placement dorsal column stimulator generator, complex programming postoperatively, post-operative pain management, bowel regimen, DVT Prophylaxis, PT/OT/CM per Orthopedic surgery discretion. #2. CAD: Status post PCI, once allowed encourage continuation of antiplatelet therapy, continue statin, lisinopril, metoprolol home regimen. #3. Hypertension: Continue home regimen including metoprolol, lisinopril with hold parameters as needed, PRN hydralazine. #4. Hyperlipidemia: We will continue patient statin home therapy. #5. Diabetes mellitus type II: Currently oral regimen has been continued but low threshold to hold in case of any need for imaging with contrast, maintain on ADA diet, accu checks w/ ISS. #6. Morbid Obesity: Weight loss and lifestyle changes encouraged. #7. Gout: We will continue patient home allopurinol regimen. #8. DVT prophylaxis: SCDs, chemoprophylaxis per surgery discretion given recent OR. Charges/Coding Visit Charges Inpatient E&M: 52487 Subs Hosp L3
[2022-01-13] MEDS: Morphine 4 MG/ML Syringe IV (19:42)
[2022-01-13] MEDS: 0.9% Saline Lock 10 ML Syringe IV (19:43)
[2022-01-13] MEDS: Cefazolin 1 GM/50 ML BAG IV (21:28)
[2022-01-13] MEDS: oxyCODONE 5 MG Tablet PO (21:33)
[2022-01-13] MEDS: Atorvastatin Calcium 80 MG Tablet PO (21:33)
[2022-01-13] MEDS: Acetaminophen 500 MG Tablet 1000 MG PO (21:34)
[2022-01-13] MEDS: Metoprolol Tartrate 25 MG Tablet PO (21:34)
[2022-01-13 22:01] LABS: Bedside Glucose 148 mg/dL (74-106)
[2022-01-14] VITALS (8 sets, daily range): BP systolic 102–117; BP diastolic 69–85; PULSE 56–86; RESP 16–20; TEMP 36.5–36.7; O2SAT 91–97; BMI 41.9
[2022-01-14] MEDS: oxyCODONE 5 MG Tablet PO ×3 (02:24→12:02)
[2022-01-14] MEDS: Cefazolin 1 GM/50 ML BAG IV (06:50)
[2022-01-14] MEDS: Acetaminophen 500 MG Tablet 1000 MG PO (07:03)
[2022-01-14 07:35] LABS: Bedside Glucose 118 mg/dL (74-106)
[2022-01-14] MEDS: Lisinopril 10 MG Tablet PO (08:02)
[2022-01-14] MEDS: Metoprolol Tartrate 25 MG Tablet PO (08:02)
[2022-01-14] MEDS: metFORMIN HCl 500 MG Tablet PO (08:03)
[2022-01-14] MEDS: Multivitamins,Therapeutic Tablet 1 TABLET PO (08:03)
[2022-01-14] MEDS: Allopurinol 100 MG Tablet PO (08:03)
[2022-01-14] MEDS: Morphine 4 MG/ML Syringe IV (08:29)
[2022-01-14] MEDS: 0.9% Saline Lock 10 ML Syringe IV (08:29)
--- NOTE | 2022-01-14 10:23 | PN.HOSP_ITS ---
Subjective Subjective Doing well, pain is improved. Pacheco is in place will discuss with neurosurgery about removal Objective Data Objective Data Vital Signs: Vital Signs Temp Pulse Resp BP Pulse Ox 98.1 F 62 20 H 102/85 H 94 01/14/22 06:24 01/14/22 08:02 01/14/22 06:24 01/14/22 06:24 01/14/22 06:24 Oxygen Flow Rate (L/min) 2 Oxygen Delivery Method Room Air Weight: 292 lb 5.327 oz Body Mass Index (BMI) 41.9 Intake & Output: Intake and Output for Last 24 Hours 01/13/22 01/14/22 01/15/22 03:59 03:59 03:59 Intake Total 1606.67 / 1606.67 1050 / 1050 Output Total 735 / 735 250 / 250 Balance 871.67 / 871.67 800 / 800 Lab / Micro Data Labs: Laboratory Results - last 24 hr 01/13/22 11:53: POC Glucose 149 H 01/13/22 17:25: POC Glucose 164 H 01/13/22 21:42: POC Glucose 148 H 01/14/22 07:05: POC Glucose 118 H Radiography Diagnostic Testing: Radiology Impression Lumbar Spine X-Ray 01/13/22 12:30 IMPRESSION: Fluoroscopic assistance images were obtained. Dictation for documentation purposes only. Electronically Signed: Chris Abdullahi MD at 16:49 EDT Reading Location ID and State: [facility] / [place] , Service support , Physical Exam Const alert, oriented x3 and no apparent distress General Appearance: cooperative HEENT normocephalic and moist oral mucous membranes Eyes PERRL, EOMs intact bilaterally and conjunctivae normal Neck supple and no JVD Resp normal respiratory effort, no retractions, no use of accessory muscles and clear to auscultation bilaterally Auscultation: Negative for crackles, rales, rhonchi or wheezes Cardio regular rate, regular rhythm, S1 normal heart sound, S2 normal heart sound and no murmurs GI soft to palpation, non-tender and non-distended; Negative for hepatosplenomegaly Extremity no clubbing, cyanosis or edema Skin no rashes or lesions noted Skin Narrative: Dressing CDI Neuro no focal motor deficits and no sensory deficits noted Psych affect normal Appearance: appropriate Assessment & Plan Assessment/Plan (1) Lumbar spondylosis: PLAN: 1. Severe lumbar stenosis with spondylosis status post partial bilateral laminectomies of T9-T10 on 01/13/2022 ?Pain management per primary ? PT/OT ? Medically stable for discharge when cleared by neurosurgery 2. CAD status post stents/HTN/HLD/morbid obesity ? Continue with his home blood pressure medications, creatinine is slightly bumped but improving, continue with IV fluids ? Continue with statin ? Continue with antiplatelet therapy when okay with neurosurgery ?BMI 41.9, lifestyle modifications were discussed 3. DM2 ? Metformin has been continued by primary, if any imaging is needed the medication will need to be discontinued ? Continue Accu-Cheks AC at bedtime ? Sliding scale insulin is available ? We will make adjustments as necessary 4. Gout ? Stable ? Continue with allopurinol Will follow peripherally DVT: SCDs Charges/Coding Visit Charges OBSV E&M: 63786 Subsequent observation care L2
--- NOTE | 2022-01-14 10:45 | PHA.DC.MC ---
Pharmacy Service has performed discharge medication reconciliation and counseling for this patient. 1. NORCO 5/325MG PO Q6H PRN PAIN The patient's discharge medication list was reviewed for discrepancies and discrepancies were resolved. Home Medications metformin 500 mg PO DAILY 09/27/14 multivitamin with folic acid 1 tab PO DAILY 01/19/16 psyllium husk [Metamucil] 4 tab PO BID 01/19/16 allopurinol 100 mg tablet 100 mg PO DAILY 01/02/20 lisinopril 10 mg tablet 10 mg PO QDAY #90 tab 01/13/21 nitroglycerin 0.4 mg sublingual tablet 0.4 mg SUBLINGUAL Q5M PRN #90 tab 02/11/21 atorvastatin 80 mg tablet 80 mg PO QHS #90 tab 11/08/21 metoprolol tartrate 25 mg tablet 25 mg PO BID #180 tab 11/08/21 hydrocodone-acetaminophen 1 tab PO Q6H 7 Days #28 tab 01/13/22 The patient was counseled on the following discharge medications and changes in medications for homegoing were reviewed. The Reason for Use, instructions for use, and potential side effects were reviewed for all new medications. The patient's questions regarding all of their medications were answered. The patient was able to verbally demonstrate an understanding of their discharge medications.
--- NOTE | 2022-01-14 10:55 | CASEMGMT ---
ANTHONY VANG Assessment: Face to Face with pt for initial transition planning/care coordination assessment. ANTHONY VANG introduced self and role at [facility], pt voices understanding and consents to assessment. Pt is A/O x4 and answers all questions appropriately at this time. Pt sitting on edge of bed with at bedside. Care providers, pharmacy, and demographics verified/updated. Admitting Dx: thoracic 9-10 laminectomy PCP:Ramón Specialists:Char, spine OR; Nanette, cardio; Lloyd, vlad Preferred Pharmacy: [facility] Insurance: Kirti RILEY Prescription Benefit: yes LW/HPOA: Pt denies having a LW/DPOA and denies need for info regarding AD. LNOK: Kirti RILEY Living Arrangements: Pt lives with in a single story house with 2 steps to enter with a rail. Pt reports he was I in ADL's prior and denies concerns at home. Transportation: Pt drives self and denies concerns with transportation. Pt able to transport until pt able to drive. DME/HHC/SNF: Pt has a FWW, 2 rollators, canes and walking sticks. Pt states he has a BGM but does not use. States he gets his A1C checked twice a year and his PCP is fine with this. Pt denies hx of HHC or SNF stays. Pt states no concerns with going home at time of dc. Pt states no further concerns/needs. CM to follow. Advised pt to ask CM if any further question/concerns/needs arise, voices understanding. Pt Goal: Home Plan: Home
[2022-01-14 12:21] LABS: Bedside Glucose 121 mg/dL (74-106)
--- NOTE | 2022-01-14 12:21 | CHAPLAIN ---
Type of Pastoral Visit _x__ Initial Visit ___ Follow-up Visit ___ On-call Visit ___ General Patient Visit ___ Spiritual Assessment ___ Family Conference ___ Bereavement ___ Rapid Response ___ Code Blue ___ Other (describe below) Pastoral Care Referral From _x__ Patient ___ Family ___ Nurse ___ Physician ___ Caser Up ___ Stock Repairer ___ Other (describe below) Sacrament/Intervention _x__ Active listening ___ Anointing ___ Mormonism ___ Bereavement ___ Communion ___ Emelina exploration ___ _x__ Life review _x__ Prayer ___ Reconciliation ___ Sacrament of Sick ___ Supportive presence ___ Wedding ___ Other (describe below) Pastoral Comments patient and spouse together in room; pt expects to be discharged soon; 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
== END 2022-01-14 14:26 | disposition home or self-care (01) ==
LOC: SDC 16:36 → MS3 01-14 07:09
PROVIDERS: Admitting Provider Orthopaedic Surgery; PCP Family Medicine; Referring Provider Orthopaedic Surgery; Visit Provider Family Medicine
PROC: (CPT 63655; principal; 2022-01-13 12:00)
DX: M47.816 Spondylosis without myelopathy or radiculopathy, lumbar region (principal); M46.96 Unspecified inflammatory spondylopathy, lumbar region; M46.1 Sacroiliitis, not elsewhere classified; E66.01 Morbid (severe) obesity due to excess calories; Z68.41 Body mass index [BMI] 40.0-44.9, adult; E11.9 Type 2 diabetes mellitus without complications; M48.061 Spinal stenosis, lumbar region without neurogenic claudication; I10 Essential (primary) hypertension; E78.00 Pure hypercholesterolemia, unspecified; I25.10 Atherosclerotic heart disease of native coronary artery without angina pectoris; M10.9 Gout, unspecified; Z79.899 Other long term (current) drug therapy; Z79.84 Long term (current) use of oral hypoglycemic drugs; Z79.82 Long term (current) use of aspirin; M51.36 Other intervertebral disc degeneration, lumbar region; M41.86 Other forms of scoliosis, lumbar region
CPT/HCPCS: 63685; 63655; 00300; 72100; 76000; 82962; 96361; 96365; 96366; 96375; 96376; 97162; 99218; 99251; C1778; C1820; J7120; A4216; G0378; G0463; J2405; J3490

== ENCOUNTER → 2022-06-07 | Outpatient (CLI) | payer MEDICARE, BC, SELFPAY ==
[2022-06-07 12:57] LABS: AST(SGOT) 25 U/L (15-37); Alanine Aminotransfer ALT/SGPT 49 U/L (16-61); Albumin, Serum 3.4 g/dL (3.2-5.0); Alkaline Phosphatase 127 U/L (45-117); Bilirubin, Direct 0.19 mg/dL (0.00-0.30); Cholesterol 132 mg/dL (200); Globulin 3.9 g/dL (2.2-4.2); High Density Lipoprotein 48 mg/dL; Protein, Total 7.3 g/dL (6.4-8.2); Triglycerides 79 mg/dL; Very Low Density Lipoprotein 16 mg/dL (5-40)
== END | disposition home or self-care (01) ==
LOC: MFPLAB 10:32
PROVIDERS: PCP Family Medicine; Referring Provider Family Medicine; Visit Provider Internal Medicine Cardiovascular Disease
DX: E78.00 Pure hypercholesterolemia, unspecified (principal)
CPT/HCPCS: 36415; 80061; 80076

== ENCOUNTER → 2022-07-04 | Outpatient (CLI) | payer MEDICARE, BC, SELFPAY ==
--- NOTE | 2022-07-04 12:03 | EKG12_ITS ---
Test Reason : PRE OP Blood Pressure : / mmHG Vent. Rate : 055 BPM Atrial Rate : 055 BPM P-R Int : 236 ms QRS Dur : 136 ms QT Int : 420 ms P-R-T Axes : 054 090 034 degrees QTc Int : 401 ms Sinus bradycardia with 1st degree A-V block Right bundle branch block Abnormal ECG Confirmed by TAMIR BOONE, SYEDA ([id number]), publishing editor ODALIS ZEE ([id number]) on 07/05/2022 6:19:16 AM Referred By: Lobo Bray Confirmed By:SYEDA GARNETT MD
[2022-07-04 13:42] LABS: Anion Gap 5 (5-15); BUN 20 mg/dL (7-18); BUN/Creat Ratio 16.7 RATIO (10-20); Calcium,Total 9.1 mg/dL (8.5-10.1); Chloride 109 mmol/L (98-107); EST Glomerular Filtration Rate 62 mL/min (>60); Est Glom Filt Rate - Afr Amer 75 mL/min (>60); Glucose 116 mg/dL (74-106); Potassium 4.5 mmol/L (3.5-5.1); Sodium Level 140 mmol/L (136-145)
[2022-07-04 15:44] LABS: Hemoglobin A1c 6.3 % (3.8-5.6)
== END | disposition home or self-care (01) ==
LOC: PSN 11:58
PROVIDERS: PCP Family Medicine; Referring Provider Orthopaedic Surgery; Visit Provider Orthopaedic Surgery
DX: Z01.810 Encounter for preprocedural cardiovascular examination (principal); E11.9 Type 2 diabetes mellitus without complications
CPT/HCPCS: 36415; 80048; 83036; 87426; 93005; C9803

== ENCOUNTER → 2022-11-11 | Outpatient (CLI) | payer MEDICARE, BC, SELFPAY ==
[2022-11-11 12:45] LABS: AST(SGOT) 20 U/L (15-37); Alanine Aminotransfer ALT/SGPT 36 U/L (16-61); Albumin, Serum 3.4 g/dL (3.2-5.0); Alkaline Phosphatase 104 U/L (45-117); Anion Gap 8 (5-15); BUN 21 mg/dL (7-18); BUN/Creat Ratio 16.3 RATIO (10-20); Calcium,Total 9.1 mg/dL (8.5-10.1); Chloride 107 mmol/L (98-107); Cholesterol 130 mg/dL (200); Creatinine, Serum 1.29 mg/dL (0.70-1.30); EST Glomerular Filtration Rate 57 mL/min (>60); Est Glom Filt Rate - Afr Amer 68 mL/min (>60); Globulin 3.5 g/dL (2.2-4.2); Glucose 112 mg/dL (74-106); High Density Lipoprotein 49 mg/dL; PSA,Total - Annual Screen 1.98 ng/mL (0.00-4.00); Potassium 4.8 mmol/L (3.5-5.1); Protein, Total 6.9 g/dL (6.4-8.2); Sodium Level 140 mmol/L (136-145); Thyroid Stim Hormone (TSH) 1.91 uIU/mL (0.358-3.74); Triglycerides 99 mg/dL; Very Low Density Lipoprotein 20 mg/dL (5-40)
[2022-11-11 13:15] LABS: Hemoglobin A1c 6.1 % (3.8-5.6)
== END | disposition home or self-care (01) ==
LOC: LAB 11:42
PROVIDERS: PCP Family Medicine; Referring Provider Family Medicine; Visit Provider Family Medicine
DX: Z00.00 Encounter for general adult medical examination without abnormal findings (principal); E11.9 Type 2 diabetes mellitus without complications; I10 Essential (primary) hypertension; E78.5 Hyperlipidemia, unspecified; Z12.5 Encounter for screening for malignant neoplasm of prostate
CPT/HCPCS: 36415; 80053; 80061; 83036; 84153; 84443; G0103

== ENCOUNTER 2023-06-27 11:15 | Outpatient (CLI) | payer MEDICARE, BC, SELFPAY ==
[2023-06-27 11:18] LABS: Bacteria 0 SEEN /hpf (None Seen); Mucous, Urine 0 SEEN /hpf (<or=2+); Red Blood Cells-Urine 0 SEEN /hpf (0-5); Squamous Epithelial Cells - UA 0 SEEN /hpf (0-5); White Blood Cells 0 SEEN /hpf (0-5)
[2023-06-27 12:52] LABS: Color, Urine Yellow (Yellow); Glucose, Dipstick Normal (Normal); Ketone-Dipstick Negative (Negative); Leukocyte Esterase-Dipstick Negative /ul (Negative); Nitrite-Dipstick Negative (Negative); Occult Blood-Urine Negative /ul (Negative); Protein-Dipstick 15 mg/dl (Negative); Specific Gravity, Urine 1.015 (1.002-1.030); Urine Bilirubin Dipstick Negative (Negative); Urine Clarity Clear (Clear); Urine Urobilinogen Normal (Normal)
[2023-06-27 13:03] LABS: ALB/GLOB Ratio 1.1 RATIO (0.9-2.4); AST(SGOT) 21 U/L (15-37); Alanine Aminotransfer ALT/SGPT 42 U/L (16-61); Albumin, Serum 3.5 g/dL (3.2-5.0); Alkaline Phosphatase 115 U/L (45-117); Anion Gap 6 (5-15); BUN 26 mg/dL (7-18); BUN/Creat Ratio 20.6 RATIO (10-20); Calcium,Total 8.9 mg/dL (8.5-10.1); Chloride 112 mmol/L (98-107); Cholesterol 129 mg/dL (200); Creatinine, Serum 1.26 mg/dL (0.70-1.30); EST Glomerular Filtration Rate 58 mL/min (>60); Est Glom Filt Rate - Afr Amer 70 mL/min (>60); Globulin 3.3 g/dL (2.2-4.2); Glucose 112 mg/dL (74-106); High Density Lipoprotein 50 mg/dL; Potassium 4.4 mmol/L (3.5-5.1); Protein, Total 6.8 g/dL (6.4-8.2); Sodium Level 141 mmol/L (136-145); Triglycerides 98 mg/dL; Very Low Density Lipoprotein 20 mg/dL (5-40)
[2023-06-27 13:28] LABS: Hemoglobin A1c 6.2 % (3.8-5.6)
[2023-12-25 11:30] LABS: Bacteria 0 SEEN /hpf (None Seen); Mucous, Urine 0 SEEN /hpf (<or=2+); Red Blood Cells-Urine 0 SEEN /hpf (0-5); Squamous Epithelial Cells - UA 0 SEEN /hpf (0-5); White Blood Cells 0 SEEN /hpf (0-5)
[2023-12-25 12:30] LABS: Absolute Lymphocyte Count 3.52 X10^3/uL (0.83-4.51); Absolute Neutrophil Count 4.2 X10^3/uL (2.0-7.7); Basophil# 0.06 X10^3/uL; Basophil% 0.7 % (0-1); Eosinophil# 0.47 X10^3/uL; Eosinophils% 5.3 % (0-5); Hematocrit 43.3 % (40-54); Lymphocyte # 3.52 X10^3/ul (0.83-4.51); Lymphocyte % 39.9 % (19-41); Mean Corp Hgb Conc 32.3 g/dL (32-36); Mean Corpuscular Hgb 31.7 pg (27.0-32.0); Mean Corpuscular Volume 98.2 fL (80-94); Mean Platelet Vol. 11.7 fl (6.2-12.0); Monocyte# 0.59 X10^3/uL; Monocyte% 6.7 % (0-10); NRBC Flagged by Analyzer 0 % (0-5); Neutrophil # 4.15 X10^3/uL (2.7-7.7); Neutrophil % 47.1 % (47-70); Platelet Count 192 K/mm3 (150-450); RBC Distribution Width CV 13.9 % (11.6-14.6); RBC Distribution Width SD 50.5 fl (35.1-43.9); Red Blood Count 4.41 M/mm3 (4.6-6.2); White Blood Count 8.8 K/mm3 (4.4-11.0)
[2023-12-25 13:16] LABS: AST(SGOT) 28 U/L (15-37); Alanine Aminotransfer ALT/SGPT 52 U/L (16-61); Albumin, Serum 3.4 g/dL (3.2-5.0); Alkaline Phosphatase 112 U/L (45-117); Anion Gap 5 (5-15); BUN 22 mg/dL (7-18); BUN/Creat Ratio 15.8 RATIO (10-20); Calcium,Total 8.9 mg/dL (8.5-10.1); Chloride 111 mmol/L (98-107); Cholesterol 128 mg/dL (200); Creatinine, Serum 1.39 mg/dL (0.70-1.30); EST Glomerular Filtration Rate 52 mL/min (>60); Est Glom Filt Rate - Afr Amer 63 mL/min (>60); Globulin 3.3 g/dL (2.2-4.2); Glucose 116 mg/dL (74-106); High Density Lipoprotein 54 mg/dL; PSA,Total- Diagnostic 2.32 ng/mL (0.0-4.0); Potassium 4.7 mmol/L (3.5-5.1); Protein, Total 6.7 g/dL (6.4-8.2); Sodium Level 140 mmol/L (136-145); Thyroid Stim Hormone (TSH) 1.82 uIU/mL (0.358-3.74); Triglycerides 80 mg/dL; Very Low Density Lipoprotein 16 mg/dL (5-40)
[2023-12-25 14:00] LABS: Hemoglobin A1c 6.1 % (3.8-5.6)
[2023-12-25 15:49] LABS: Color, Urine Yellow (Yellow); Glucose, Dipstick Normal (Normal); Ketone-Dipstick Negative (Negative); Leukocyte Esterase-Dipstick Negative /ul (Negative); Nitrite-Dipstick Negative (Negative); Occult Blood-Urine Negative /ul (Negative); Protein-Dipstick 15 mg/dl (Negative); Specific Gravity, Urine 1.015 (1.002-1.030); Urine Bilirubin Dipstick Negative (Negative); Urine Clarity Clear (Clear); Urine Urobilinogen Normal (Normal)
== END 2023-06-27 23:59 | disposition home or self-care (01) ==
LOC: MFPLAB 11:16
PROVIDERS: PCP Family Medicine; Visit Provider Family Medicine
DX: E11.9 Type 2 diabetes mellitus without complications (principal); I10 Essential (primary) hypertension; N42.9 Disorder of prostate, unspecified; R35.0 Frequency of micturition; E78.5 Hyperlipidemia, unspecified
CPT/HCPCS: 36415; 80053; 80061; 81001; 83036; 84153; 84443; 85025

== ENCOUNTER → 2023-06-28 | Outpatient (CLI) | payer MEDICARE, BC, SELFPAY ==
--- NOTE | 2023-06-28 14:59 | RAD_ITS ---
STUDY: X-RAY - RIGHT SHOULDER REASON FOR EXAM: Male, 83 years old. Pain, decreased range of motion TECHNIQUE: 4 view(s) of the shoulder. COMPARISON: None. FINDINGS: There is severe degenerative arthrosis of the glenohumeral articulation. There is degenerative arthrosis of the acromioclavicular joint without inferior osseous spur formation. Normal acromion. There is demineralization of the humerus and visualized osseous structures. The soft tissue structures are unremarkable. Normal visualized pulmonary apex. RAD/Shoulder min 2 Views IMPRESSION: Degenerative arthrosis Electronically Signed: Daniel Washington MD at 21:03 EDT ,
== END | disposition home or self-care (01) ==
LOC: MTLAB 14:58
PROVIDERS: PCP Family Medicine; Referring Provider Family Medicine; Visit Provider Family Medicine
DX: M25.519 Pain in unspecified shoulder (principal)
CPT/HCPCS: 73030

== ENCOUNTER → 2023-12-25 | Outpatient (CLI) | payer MEDICARE, BC, SELFPAY | END | disposition home or self-care (01) | LOC: MFPLAB 11:20 | PROVIDERS: PCP Family Medicine; Visit Provider Family Medicine | DX: Z00.00 Encounter for general adult medical examination without abnormal findings (principal) ==

== ENCOUNTER → 2024-07-19 | Outpatient (CLI) | payer MEDICARE, SELFPAY ==
[2024-07-19 13:11] LABS: AST(SGOT) 19 U/L (15-37); Alanine Aminotransfer ALT/SGPT 44 U/L (16-61); Albumin, Serum 3.8 g/dL (3.2-5.0); Alkaline Phosphatase 134 U/L (45-117); Bilirubin, Direct 0.18 mg/dL (0.00-0.30); Cholesterol 131 mg/dL (200); Globulin 3.3 g/dL (2.2-4.2); High Density Lipoprotein 61 mg/dL; Protein, Total 7.1 g/dL (6.4-8.2); Triglycerides 88 mg/dL; Very Low Density Lipoprotein 18 mg/dL (5-40)
[2024-07-19 13:22] LABS: PSA,Total - Annual Screen 2.56 ng/mL (0.00-4.00)
== END | disposition home or self-care (01) ==
LOC: LAB 12:13
PROVIDERS: PCP Family Medicine; Referring Provider Internal Medicine Cardiovascular Disease; Visit Provider Internal Medicine Cardiovascular Disease
DX: I25.118 Atherosclerotic heart disease of native coronary artery with other forms of angina pectoris (principal); E78.00 Pure hypercholesterolemia, unspecified; N42.9 Disorder of prostate, unspecified
CPT/HCPCS: 36415; 80061; 80076; 84153; G0103

== ENCOUNTER → 2024-08-01 | Outpatient (CLI) | payer MEDICARE, SELFPAY ==
[2024-08-01] MEDS: Zolpidem Tartrate 5 MG Tablet PO (22:00)
== END | disposition home or self-care (01) ==
LOC: SL 20:05
PROVIDERS: PCP Family Medicine; Referring Provider Nurse Practitioner Acute Care; Visit Provider Nurse Practitioner Acute Care
DX: G47.33 Obstructive sleep apnea (adult) (pediatric) (principal)
CPT/HCPCS: 95810

== ENCOUNTER → 2024-08-16 | Outpatient (CLI) | payer MEDICARE, SELFPAY ==
[2024-08-16 15:34] LABS: Anion Gap 4 (5-15); BUN 26 mg/dL (7-18); BUN/Creat Ratio 20.5 RATIO (10-20); Calcium,Total 9.3 mg/dL (8.5-10.1); Chloride 110 mmol/L (98-107); Creatinine, Serum 1.27 mg/dL (0.70-1.30); EST Glomerular Filtration Rate 57 mL/min (>60); Est Glom Filt Rate - Afr Amer 69 mL/min (>60); Glucose 90 mg/dL (74-106); Potassium 4.8 mmol/L (3.5-5.1); Sodium Level 139 mmol/L (136-145)
[2024-08-16 15:40] LABS: Hemoglobin A1c 5.6 % (3.8-5.6)
== END | disposition home or self-care (01) ==
LOC: MFPLAB 12:22
PROVIDERS: PCP Family Medicine; Referring Provider Family Medicine; Visit Provider Family Medicine
DX: E11.9 Type 2 diabetes mellitus without complications (principal)
CPT/HCPCS: 36415; 80048; 83036

== ENCOUNTER → 2024-11-05 | Outpatient (CLI) | payer MEDICARE, SELFPAY | END | disposition home or self-care (01) | LOC: SL 14:01 | PROVIDERS: PCP Family Medicine; Referring Provider Nurse Practitioner Family; Visit Provider Nurse Practitioner Family | DX: G47.33 Obstructive sleep apnea (adult) (pediatric) (principal) | CPT/HCPCS: 98960; G0463 ==

== ENCOUNTER → 2025-03-31 | Outpatient (CLI) | payer MEDICARE, SELFPAY ==
[2025-03-31 15:56] LABS: Creatinine, Urine (random) 111.00 mg/dL (39.00-259.00); Microalbumin,Random Urine < 12.0 mg/L (<20 mg/L)
[2025-03-31 15:59] LABS: Anion Gap 9 (5-15); BUN 20 mg/dL (4-19); BUN/Creat Ratio 16.4 RATIO (10-20); Calcium,Total 9.4 mg/dL (7.6-11.0); Carbon Dioxide 21.3 mmol/L (21.0-32.0); Chloride 108 mmol/L (98-108); Glucose 91 mg/dL (70-99); Potassium 5.5 mmol/L (3.3-5.1)
== END | disposition home or self-care (01) ==
LOC: MFPLAB 11:42
PROVIDERS: PCP Family Medicine; Referring Provider Family Medicine; Visit Provider Family Medicine
DX: I10 Essential (primary) hypertension (principal); N28.9 Disorder of kidney and ureter, unspecified
CPT/HCPCS: 36415; 80048; 82043; 82570